=== PATIENT | male | born 1985 | race Hispanic/Latino ===

== ENCOUNTER 2018-07-17 16:11 | Emergency (ER) | payer SELFPAY ==
[2018-07-17 17:08] LABS: #Eosinphils 0.2 thou/uL (0.0-0.7); #Lymphocytes 2.4 thou/uL (1.20-3.40); #Monocytes 0.4 thou/uL (0.11-0.59); #Neutrophils 6.2 thou/uL (1.40-6.50); %Basophils 0.4 % (0.0-1.0); %Eosinophils 1.9 % (0.0-10.0); %Lymphocytes 25.5 % (21.0-51.0); %Monocytes 4.6 % (0.0-10.0); %Neutrophils 67.5 % (42.0-75.0); Hemoglobin 15.6 g/dL (14.0-18.0); Mean Corpuscular HGB CONC 35.2 g/dL (32.0-36.0); Mean Corpuscular Hemoglobin 31.9 pg (27.0-31.0); Mean Corpuscular Volume 90.5 fL (78.0-98.0); Mean Platelet Volume 8.4 fL (7.4-10.4); Platelet Count 257 thou/uL (130-400); RBC Distribution Width 11.4 % (11.5-14.5); Red Blood Cell (RBC) Count 4.89 mill/uL (4.70-6.10); White Blood Cell (WBC) Count 9.2 thou/uL (4.8-10.8)
[2018-07-17 17:30] LABS: ALT (SGPT) 20 U/L (8-55); AST (SGOT) 22 U/L (5-34); Albumin 4.8 g/dL (3.5-5.0); Alkaline Phosphatase 53 U/L (40-150); Anion Gap 13 mmol/L (10-20); BUN (Urea Nitrogen) 10 mg/dL (8.9-20.6); Bilirubin, Total 2.1 mg/dL (0.2-1.2); Calc. Creatinine Clearance 0 mL/min (70-130); Calcium 9.7 mg/dL (7.8-10.44); Carbon Dioxide 22 mmol/L (22-29); Chloride 105 mmol/L (98-107); Estimated GFR-MDRD Greater than 90; Globulin 2.8 g/dL (2.4-3.5); Glucose 104 mg/dL (70-105); Potassium 4.2 mmol/L (3.5-5.1); Protein, Total 7.6 g/dL (6.0-8.3); Sodium 136 mmol/L (136-145)
[2018-07-17 17:36] LABS: CKMB 0.5 ng/mL (0-6.6); Troponin I Less than 0.010 ng/mL (< 0.028)
--- NOTE | 2018-07-17 18:25 | RAD ---
CHEST TWO VIEWS: 07/17/18 INDICATION: History of bodyaches and fatigue. COMPARISON: None. FINDINGS: Lungs are clear. The cardiomediastinal silhouette is within normal limits. No acute osseous abnormali ties evident. IMPRESSION: No acute cardiopulmonary abnormality. POS: ESTEFANIA
[2018-07-17 19:08] LABS: Troponin I Less than 0.010 ng/mL (< 0.028)
--- NOTE | 2018-07-18 17:05 | EKG ---
Test Reason : CHEST PAIN Blood Pressure : / mmHG Vent. Rate : 060 BPM Atrial Rate : 060 BPM P-R Int : 158 ms QRS Dur : 082 ms QT Int : 400 ms P-R-T Axes : 030 012 011 degrees QTc Int : 400 ms Normal sinus rhythm Normal ECG Confirmed by ANDI SMYTH ([id number]), communications editor LORELEI PRINCE ([id number]) on 07/18/2018 5:04:33 PM Referred By: Confirmed By:ANDI SMYTH
== END 2018-07-17 19:36 | disposition home or self-care (01) ==
LOC: ERS 16:11
DX: R07.9 Chest pain, unspecified (principal); M25.50 Pain in unspecified joint; F41.9 Anxiety disorder, unspecified; Z79.899 Other long term (current) drug therapy
CPT/HCPCS: 36415; 36416; 71046; 80053; 82553; 84484; 85025; 87804; 93005; 94760